=== PATIENT | male | born 2005 ===

== ENCOUNTER 2025-03-11 21:57 | Observation (INO) | payer BC ==
[2025-03-12 01:04] LABS: Hematocrit 42.1 % (38.8-50.0); Hemoglobin 14.8 g/dL (13.5-17.5); Mean Corpuscular Hemoglobin 30.0 pg (27.0-33.0); Mean Corpuscular Volume 85.2 fL (81.2-95.1); Platelet Count 135 10x3/uL (150-450); Red Blood Cell (RBC) Count 4.94 10x6/uL (4.32-5.72); White Blood Cell (WBC) Count 8.25 10x3/uL (3.5-10.5)
[2025-03-12 01:05] LABS: MDiff Complete? YES; Platelet Adequacy Comment Appears Decreased; RBC Morphology Within Normal Limits
[2025-03-12 01:10] LABS: ALT (SGPT) 21 U/L (Less than 45); AST (SGOT) 28 U/L (11-34); Albumin 4.6 g/dL (3.1-4.5); Alkaline Phosphatase 76 U/L (50-130); Anion Gap 14 mmol/L (10-20); BUN (Urea Nitrogen) 20 mg/dL (8.9-20.6); Bilirubin, Total 2.3 mg/dL (0.3-1.2); Calc. Creatinine Clearance 0 mL/min (70-130); Calcium 9.5 mg/dL (7.8-10.44); Carbon Dioxide 25 mmol/L (22-29); Chloride 105 mmol/L (98-107); Globulin 2.2 g/dL (2.4-3.5); Glucose 86 mg/dL (70-105); Potassium 3.5 mmol/L (3.5-5.1); Sodium 140 mmol/L (136-145)
[2025-03-12] MEDS ORDERED: Ondansetron PF 4 MG/2 ML Vial IVP PRN (03:08)
[2025-03-12] MEDS: 1/2 NS w/Potassium 20 mEq 1,000 ML IV SCH (03:37)
[2025-03-12] MEDS ORDERED: SUCCINYLCHOLINE/SOD CL,ISO/PF 200 MG/10 ML SYRINGE FS ONE (06:39)
[2025-03-12] MEDS ORDERED: Rocuronium Bromide 10 MG/ML (10ML VIAL) ONE (06:39)
[2025-03-12] MEDS ORDERED: Ondansetron PF 4 MG/2 ML Vial ONE (06:39)
[2025-03-12] MEDS ORDERED: PROPOFOL 20 ML ONE (06:39)
[2025-03-12] MEDS ORDERED: Lidocaine 1% PF 5 ML VIAL ONE (07:02)
== END 2025-03-12 09:20 | disposition home or self-care (01) ==
LOC: CSHERS 21:57 → CSHERHOLD 03-12 03:15
PROVIDERS: ADMIT Family Medicine; ATTEND Student in an Organized Health Care Education/Training Program
PROC: 0DC18ZZ Extirpation of Matter from Upper Esophagus, Via Natural or Artificial Opening Endoscopic (ICD-10-PCS; principal; 2025-03-12)
DX: T18.198A Other foreign object in esophagus causing other injury, initial encounter (principal); E80.6 Other disorders of bilirubin metabolism; W44.B9XA Other plastic object entering into or through a natural orifice, initial encounter
CPT/HCPCS: 71046; 71260; 80053; 85025; G0378; J1100; J2250; J2405; J2704; J3010; J3480